=== PATIENT | female | born 1965 | race Caucasian/White ===

== ENCOUNTER 2025-01-26 13:38 | Emergency (ER) | payer SELFPAY ==
[2025-01-26 13:39] VITALS: BP 150/103; PULSE 110; RESP 18; TEMP 36.6; O2SAT 99; BMI 27.4
--- NOTE | 2025-01-26 14:19 | RAD_ITS ---
PROCEDURE: WRIST MIN 3 VIEWS 01/26/2025 REASON FOR EXAM: FALL AND LEFT WRIST PAIN TECHNIQUE: 3 view(s) of the left wrist COMPARISON: None. FINDINGS: Bones: Diffuse osseous demineralization. No obvious acute fracture or aggressive lesion. Joints: Normal alignment. Joint spaces preserved. No arthropathic features. Soft tissues: Soft tissues are unremarkable. RAD/Wrist min 3 Views IMPRESSION: NEGATIVE WRIST Reading Location: [id number]
--- NOTE | 2025-01-26 14:50 | EDS_ITS ---
HPI History of Present Illness HPI Narrative: 59-year-old female [id number]. Yesterday her dog pulled her she lost her balance when she fell she injured her left wrist. No prior history of surgery. No other complaints. No head injury or LOC. Chief Complaint: Upper Extremity Injury Informant: patient Occured/Mechanism Mechanism/Context: Yes injury and Yes blunt trauma Onset/Context/Timing Onset: Yesterday Context: Sudden Onset Timing: Continuous Quality of Pain: Sharp Current Severity: Moderate Maximum Severity: Moderate Associated Symptoms Associated Symptoms: Negative for Parasthesia, Weakness or Loss of Funtion Narrative Narrative: 59-year-old female pulled over yesterday by her dog injured her wrist when she fell. Prior similar symptoms: No Recent Illness/Hospitalization: No PFSH PFSH Medical History GERD (gastroesophageal reflux disease) HTN (hypertension) Allergy/AdvReac Type Severity Reaction Status Date / Time No Known Allergies Allergy Verified 01/26/25 13:39 ROS ROS ED ROS Narrative Denies recent illness. Constitutional Constitutional ED: Denies fever(s) Eyes Eyes: Denies blurry vision ENT ENT ED: Denies ear pain Cardiovascular Cardiovascular: Denies chest pain Respiratory/Chest Respiratory/Chest: Denies cough Gastrointestinal Gastrointestinal: Denies abdominal pain Genitourinary Genitourinary ED: Denies dysuria Musculoskeletal Musculoskeletal: Denies back pain Integumentary Denies abscess Neurologic Neurologic: Denies headache(s) Psychiatric Psychiatric: Denies anxiety Endocrine Endocrinology: Denies cold intolerance Hematologic/Lymphatic Hematologic/Lymphatic: Denies easy bleeding, easy bruising or lymphadenopathy Allergic/Immunologic Allergic/Immunologic ED: Denies mouth swelling, tongue swelling or urticaria EXAM Physical Exam Narrative Exam Narrative: Well-appearing 59-year-old female. Sitting upright in bed. Vital signs are stable afebrile. H EENT exam pupils round reactive light. No facial trauma. No tenderness or bruising. Scalp nontender. C-spine and neck nontender. Spine and back nontender. Lungs clear equal and symmetrical bilaterally. Heart regular rhythm rate about 100 no murmur. Chest wall ribs nontender. Abdomen soft nontender. Pelvic girdle intact. Moving all 4 extremities. Neurovascularly intact. Left shoulder, upper arm, elbow and forearm are nontender. Distal radius and ulna at the wrist are tender mild swelling. Limited flexion extension due to pain and swelling. Normal radial pulse. Hand nontender. No no electronic intelligence officer strength and sensation. Neurologically she is awake and alert. Answering questions following commands. Const Vital Signs: 01/26/25 13:39 Temperature 98 F Temperature Source Temporal Pulse Rate 110 H Respiratory Rate 18 Blood Pressure 150/103 H Blood Pressure Mean 118 Pulse Ox 99 Oxygen Delivery Method Room Air Positive well nourished and well developed; Negative for cachectic, contractures or unkempt General Appearance ED: well developed and NAD; Negative for unkempt, cachectic, contractures, cyanotic or diaphoretic Nutritional Appearance: Negative for cachectic HEENT Reports moist mucous membranes normocephalic and atraumatic; Negative for trauma or tenderness Eyes PERRL and EOMs intact bilaterally Neck full ROM and supple General: Negative for tenderness Chest Wall inspection of chest normal and palpation of chest normal Resp normal respiratory effort and clear to auscultation bilaterally Effort and Inspection: Negative for pain with movement Auscultation: Negative for rales, rhonchi, wheezes or diminished lung sounds Cardio regular rate, regular rhythm, S1 normal heart sound, S2 normal heart sound and no murmurs Rate: Negative for bradycardia or tachycardic Rhythm: Negative for abnormal rhythm GI non-tender, non-distended and no masses Auscultation: normoactive bowel sounds Palpation: soft; Negative for tender, guarding or rebound tenderness present Back/Spine no CVA tenderness General Back: Negative for CVA tenderness Cervical Spine: Negative for cervical spine tenderness Thoracic Spine / Upper Back: Negative for thoracic spinal tenderness Lumbar Spine / Lower Back: Negative for lumbar spinal tenderness Extremity normal to inspection and full ROM Extremity Narrative: Except left wrist. Tender and swollen both on the radial and ulnar side. Limited range of motion due to pain. Normal radial pulse. Hand nontender. Normal electronic intelligence officer strength and sensation. Proximal forearm, left elbow, left upper arm and shoulder are nontender. No deformity. General Extremety ED: Yes edema General Extremity: edema Neuro oriented x3, moves all extremities, no focal motor deficits and no sensory deficits noted Sensorium / Orientation: alert, oriented to person, oriented to place and oriented to time; Negative for orientation impaired Motor Exam: strength 5/5 throughout Psych mental status grossly normal Appearance: Negative for unkempt Attitude: No agitated Mood & Affect: Negative for depressed, anxious or tearful Skin General Skin Exam: Negative for petechiae Lesions: no lesions Rashes: no rashes Trauma: no lacerations or abrasions; Negative for abrasion or laceration MDM MDM MDM Narrative Medical decision making narrative: 59-year-old female fell injuring her left wrist yesterday when she was pulled down by her dog. Left wrist x-rays were obtained no fracture. Treated as her left wrist sprain. She be given a Velcro wrist splint. Ice and elevate. Motrin and Tylenol. Follow-up if not improving. Radiography Diagnostic Testing: Left wrist x-ray, 3 views, interpreted by myself shows no acute fracture. No dislocation. Will be treated as a wrist sprain. Discharge Plan Triage Chief Complaint: Upper Extremity Injury ED Provider: Taz Marquis Dx/Rx/DC Orders Clinical Impression: Fall, Left wrist sprain Instructions: ED Wrist Sprain Primary Care Provider: Amairani Ross NP Referrals: Amairani Ross [facility] [Primary Care Provider] - 1 Week if not improving Activity Restrictions/Additional Instructions: X-ray looks good no break or dislocation. Treated as a left wrist sprain. Ice and elevate it 30 minutes at a time. Decrease pain and swelling. Motrin for pain and swelling and Tylenol. Follow-up with primary care provider if not improving. Print Language: Argentine Disposition Disposition: Home, Self Care
== END 2025-01-26 15:28 | disposition home or self-care (01) ==
LOC: ED 15:10
PROVIDERS: Emergency Provider Emergency Medicine; PCP Nurse Practitioner Family; Visit Provider Emergency Medicine
DX: S63.92XA Sprain of unspecified part of left wrist and hand, initial encounter (principal); I10 Essential (primary) hypertension; K21.9 Gastro-esophageal reflux disease without esophagitis; W01.0XXA Fall on same level from slipping, tripping and stumbling without subsequent striking against object, initial encounter; Y93.K1 Activity, walking an animal
CPT/HCPCS: 73110; 99283